=== PATIENT | female | born 1945 | race Two or more races ===

== ENCOUNTER 2019-11-23 15:23 | Emergency (ER) | payer MEDICARE, BC ==
[~2019-11-23] VITALS: Ht 157.5 cm; Wt 59.0 kg
[2019-11-23 15:27] VITALS: BP 123/75
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
[2019-11-23 16:36] LABS: APPEARANCE,URINE CLEAR; BILIRUBIN, URINE NEGATIVE (NEGATIVE); COLOR,URINE PALE YELLOW; GLUCOSE, URINE (UA) NEGATIVE (NEGATIVE); KETONES,URINE NEGATIVE (NEGATIVE); LEUKOCYTE ESTERASE ,URINE 1+ (NEGATIVE); NITRITE,URINE NEGATIVE (NEGATIVE); PH,URINE 6 (4.5-8.0); PROTEIN,URINE NEGATIVE (NEGATIVE); UROBILINOGEN,URINE NORMAL MG/DL (0.0-1.0)
--- NOTE | 2019-11-23 16:44 | Diagnostic Imaging Report ---
Clinical Indication: Pain, trauma Technique: Spiral acquisitions obtained through the chest. No IV contrast utilized, reason not stated. Multiplanar reconstructions generated. Total dose length product 168 mGycm. CTDIvol(s) 4 mGy. Dose reduction achieved using automated exposure control Comparison: none Findings: The sagittal reconstructed images suggest a nondisplaced fracture of the left lateral 10th rib. This is not evident on the axial source images, however. No other evidence of acute fracture. No dislocations. No evidence of significant soft tissue contusion. No evidence of retrosternal hematoma. The lungs demonstrate multiple small nodules and 3 mm range in the lung apices bilaterally. Similar size subpleural nodules are demonstrated posteriorly bilaterally. No infiltrates, effusions, or masses. No pneumothorax. The heart size is normal. There is minimal anterior wall pericardial thickening versus fluid. No mediastinal or hilar mass or adenopathy. The lower pole of the left thyroid lobe demonstrates a subcentimeter nodule with a peripheral calcification. No axillary or chest wall mass or adenopathy. The included upper abdominal anatomy demonstrates a 4.4 cm cyst in the dome of segment 4A of the liver.. Impression: Questionable nondisplaced left 10th rib fracture. Correlate with clinical findings. No associated pneumothorax No other significant bony or soft tissue trauma Scattered small mostly peripheral lung nodules. Recommend 6-12 months follow-up CT scan if there is significant smoking history or other risk factors for lung carcinoma. No further follow-up necessary if there are no significant disc factors Subcentimeter left lower pole thyroid nodule. No further follow-up necessary Incidental finding left lobe liver cyst The CT scanner at [facility] is accredited by the [employer] and the scans are performed using protocols designed to limit radiation exposure to as low as reasonably achievable to attain images of sufficient resolution adequate for diagnostic evaluation.
[2019-11-23 17:00] VITALS: BP 121/72
[2019-11-23] MEDS ORDERED: TYLENOL325 MG ORAL (17:10)
[2019-11-23] MEDS ORDERED: IBUPROFEN600 MG ORAL (17:10)
[2019-11-23] MEDS ORDERED: ACETAMINOPHEN-1 EAC1 ORAL (17:10)
[2019-11-23 17:28] VITALS: BP 123/75
== END 2019-11-23 17:28 | disposition home or self-care (01) ==
LOC: EMR 17:05
DX: S22.32XA Fracture of one rib, left side, initial encounter for closed fracture (principal); R82.81 Pyuria; Y04.8XXA Assault by other bodily force, initial encounter; Y92.9 Unspecified place or not applicable; Z88.2 Allergy status to sulfonamides; E04.1 Nontoxic single thyroid nodule
CPT/HCPCS: 71250; 81001; 87086; 99284